=== PATIENT | male | born 1930 | race Two or more races ===

== ENCOUNTER 2020-08-24 07:58 | Outpatient (CLI) | payer OTHER | END 2020-08-24 16:00 | disposition home or self-care (01) | LOC: NUCLEAR 07:58 | PROVIDERS: ATTEND Family Medicine | DX: I73.89 Other specified peripheral vascular diseases (principal); Q27.8 Other specified congenital malformations of peripheral vascular system; I87.2 Venous insufficiency (chronic) (peripheral) ==

== ENCOUNTER 2021-06-29 11:00 | Outpatient (CLI) | payer OTHER | END 2021-06-29 11:06 | disposition home or self-care (01) | LOC: RAD 11:00 | PROVIDERS: ATTEND Family Medicine | DX: I70.0 Atherosclerosis of aorta (principal) ==